=== PATIENT | male | born 1945 ===

== ENCOUNTER 2018-03-09 08:50 | Day surgery (SDC) | payer MEDICARE ==
[2018-03-09] MEDS ORDERED: Propofol 10 mg/ml Inj (20 ML) ONE ×2 (10:34→10:47)
[2018-03-09] MEDS ORDERED: Simethicone 40 mg/0.6 ml Liquid (30 ml) ONE (10:44)
[2018-03-09 11:28] VITALS: TEMP 97.5
[2018-03-09 12:55] VITALS: BP 112/70; PULSE 65; RESP 14; O2SAT 98
== END 2018-03-09 11:55 | disposition home or self-care (01) ==
LOC: C.ENDO 08:50
PROVIDERS: ATTEND Internal Medicine Gastroenterology
DX: Z12.11 Encounter for screening for malignant neoplasm of colon (principal); D12.3 Benign neoplasm of transverse colon; K64.1 Second degree hemorrhoids
CPT/HCPCS: 45380; 88305; J2704; J7040